=== PATIENT | female | born 1955 | race Caucasian/White ===

== ENCOUNTER → 2022-01-23 | Day surgery (SDC) | payer MEDICARE ==
[~2022-01-23] VITALS: Ht 165.1 cm; Wt 62.6 kg
[~2022-01-23] MED LIST: CRESTOR5 MG PO; ESTRACE1 MG TD; HCTZ25 MG PO; LISINOPRIL20 MG PO; MYSOLINE50 MG PO; NORVASC2.5 M1 PO
== END | disposition home or self-care (01) ==
LOC: FAS 06:04
DX: Z12.11 Encounter for screening for malignant neoplasm of colon (principal); D12.2 Benign neoplasm of ascending colon; K57.30 Diverticulosis of large intestine without perforation or abscess without bleeding; K64.8 Other hemorrhoids; E78.5 Hyperlipidemia, unspecified; I10 Essential (primary) hypertension; G47.33 Obstructive sleep apnea (adult) (pediatric); Z87.891 Personal history of nicotine dependence; Z86.010 Personal history of colon polyps
CPT/HCPCS: J2250; J2704; J7120